=== PATIENT | male | born 1995 | race Caucasian/White ===

== ENCOUNTER 2018-03-30 21:06 | Outpatient (CLI) | payer BC, OTHER ==
[~2018-03-30 21:06] MED LIST: ACHD5005 PO; ALBU17AE23 IH; CYCL10TA9 PO; DULO30CA PO; NAPR-248 PO; NAPR550T PO; ONDAN4ODT PO; PRD20T PO; PRD5T PO; TRAM-42 PO; TRAM50TA2 PO
== END 2018-03-31 05:18 | disposition home or self-care (01) ==
LOC: SLEEP 21:06
PROVIDERS: ATTEND Physician Assistant
DX: G47.33 Obstructive sleep apnea (adult) (pediatric) (principal); G47.10 Hypersomnia, unspecified
CPT/HCPCS: 95810